=== PATIENT | male | born 1990 | race Two or more races ===

== ENCOUNTER 2020-07-06 23:09 | Emergency (ER) | payer MEDICAID ==
[~2020-07-06] VITALS: Ht 177.8 cm; Wt 115.8 kg
[2020-07-06 23:37] VITALS: BP 156/83
== END 2020-07-06 23:50 | disposition home or self-care (01) ==
LOC: EMS 23:09
DX: S61.411A Laceration without foreign body of right hand, initial encounter (principal); W25.XXXA Contact with sharp glass, initial encounter; Y93.89 Activity, other specified; Y92.89 Other specified places as the place of occurrence of the external cause; Y99.8 Other external cause status